=== PATIENT | male | born 1940 | race Hispanic/Latino ===

== ENCOUNTER 2020-11-11 10:33 | Inpatient (IN) | payer MEDICARE ==
[~2020-11-11 10:33] MED LIST: Iopamidol-370 76% 500 ML 1 ML ONE
[2020-11-11 10:47] LABS: #Basophils 0.1 thou/uL (0.0-0.2); #Eosinphils 0.4 thou/uL (0.0-0.7); #Lymphocytes 4.1 thou/uL (1.20-3.40); #Monocytes 1.1 thou/uL (0.11-0.59); #Neutrophils 4.9 thou/uL (1.40-6.50); %Basophils 0.6 % (0.0-1.0); %Eosinophils 3.4 % (0.0-10.0); %Lymphocytes 39.3 % (21.0-51.0); %Monocytes 10.2 % (0.0-10.0); %Neutrophils 46.5 % (42.0-75.0); Hemoglobin 16.2 g/dL (14.0-18.0); Mean Corpuscular HGB CONC 32.2 g/dL (32.0-36.0); Mean Corpuscular Hemoglobin 32.3 pg (27.0-31.0); Platelet Count 142 thou/uL (130-400); RBC Distribution Width 12.3 % (11.5-14.5); Red Blood Cell (RBC) Count 5.03 mill/uL (4.70-6.10); White Blood Cell (WBC) Count 10.4 thou/uL (4.8-10.8)
[2020-11-11 10:54] LABS: INR-International Normal Ratio 1.3; Prothrombin Time 15.8 sec (12.0-14.7)
[2020-11-11 10:56] LABS: PTT 33.6 sec (22.9-36.1)
[2020-11-11 11:02] LABS: ALT (SGPT) Less than 7 U/L (8-55); AST (SGOT) 12 U/L (5-34); Albumin 4.3 g/dL (3.4-4.8); Alkaline Phosphatase 172 U/L (40-110); Anion Gap 32 mmol/L (10-20); BUN (Urea Nitrogen) 15 mg/dL (8.4-25.7); Bilirubin, Total 1.2 mg/dL (0.2-1.2); CK (CPK) 52 U/L (30-200); Calc. Creatinine Clearance 0 mL/min (70-130); Calcium 10.4 mg/dL (7.8-10.44); Carbon Dioxide 11 mmol/L (23-31); Chloride 106 mmol/L (98-107); Globulin 3.7 g/dL (2.4-3.5); Glucose 156 mg/dL (83-110); Potassium 3.3 mmol/L (3.5-5.1); Sodium 146 mmol/L (136-145)
[2020-11-11 11:49] LABS: Bilirubin Negative (Negative); Blood, Urine Negative (Negative); Clarity Clear (Clear); Glucose, Urine (Dipstick) Normal (Negative); Ketone, Urine Negative (Negative); Leukocyte Negative Leu/uL (Negative); Nitrite Negative (Negative); Protein, Urine (Dipstick) Negative (Neg-Trace); Specific Gravity, Urine 1.018 (1.002-1.036); Urobilinogen Normal mg/dL (Less than 2)
[2020-11-11] MEDS ORDERED: Lorazepam 2 MG/ML VIAL ONE ×2 (11:53→16:14)
[2020-11-11] MEDS ORDERED: levETIRAcetam in NS 100 ML ONE (12:49)
[2020-11-11] MEDS ORDERED: levETIRAcetam in NS 1,000 MG in Premix Bag 1 BAG IVPB SCH (13:00)
[2020-11-11] MEDS ORDERED: Acetaminophen 650 MG Suppository PR PRN (13:24)
[2020-11-11] MEDS ORDERED: Ondansetron PF 4 MG/2 ML Vial IVP PRN (13:24)
[2020-11-11 13:41] LABS: SARS-CoV-2 NAA Rapid Test Not Detected (NotDetected)
[2020-11-11] MEDS ORDERED: cefTRIAXone\\ROCEPHIN 1 GM in Sodium Chloride 0.9% 100 ML IVPB SCH (14:00)
[2020-11-11] MEDS ORDERED: Azithromycin 500 MG in Sodium Chloride 0.9% 250 ML 250 ML IVPB SCH (15:00)
[2020-11-11] MEDS ORDERED: Lorazepam 2 MG/ML VIAL SLOW IVP SCH (16:15)
[2020-11-11] MEDS ORDERED: Carbidopa/Levodopa 25-100 mg Tablet PER TUBE SCH (16:45)
[2020-11-11] MEDS ORDERED: cefTRIAXone\\ROCEPHIN 1 GM VIAL ONE (16:48)
[2020-11-11] MEDS ORDERED: Azithromycin 500 MG VIAL ONE (17:16)
[2020-11-11] MEDS ORDERED: Haloperidol Lactate 5 MG/ML VIAL IM SCH (18:15)
[2020-11-11] MEDS ORDERED: Haloperidol Lactate 5 MG/ML VIAL ONE (18:15)
[2020-11-11] MEDS: levETIRAcetam in NS 500 MG in Premix Bag 1 BAG IVPB SCH (22:44)
[2020-11-11] MEDS: Carbidopa/Levodopa 25-100 mg Tablet PER TUBE SCH (22:44)
[2020-11-12 00:36] VITALS: BMI 24.4
[2020-11-12 08:23] LABS: #Eosinphils 0.1 thou/uL (0.0-0.7); #Neutrophils 5.6 thou/uL (1.40-6.50); %Basophils 0.6 % (0.0-1.0); %Eosinophils 1.1 % (0.0-10.0); %Lymphocytes 13.4 % (21.0-51.0); %Monocytes 12.8 % (0.0-10.0); %Neutrophils 72.1 % (42.0-75.0); Hemoglobin 14.7 g/dL (14.0-18.0); Mean Corpuscular HGB CONC 34.8 g/dL (32.0-36.0); Mean Corpuscular Hemoglobin 33.2 pg (27.0-31.0); Mean Corpuscular Volume 95.5 fL (78.0-98.0); Mean Platelet Volume 10.1 fL (7.4-10.4); Platelet Count 117 thou/uL (130-400); RBC Distribution Width 12.1 % (11.5-14.5); Red Blood Cell (RBC) Count 4.42 mill/uL (4.70-6.10); White Blood Cell (WBC) Count 7.8 thou/uL (4.8-10.8)
[2020-11-12 08:36] LABS: Anion Gap 10 mmol/L (10-20); BUN (Urea Nitrogen) 9 mg/dL (8.4-25.7); Calc. Creatinine Clearance 88 mL/min (70-130); Calcium 8.9 mg/dL (7.8-10.44); Carbon Dioxide 23 mmol/L (23-31); Chloride 111 mmol/L (98-107); Glucose 101 mg/dL (83-110); Potassium 3.5 mmol/L (3.5-5.1); Sodium 140 mmol/L (136-145)
[2020-11-12] MEDS: Carbidopa/Levodopa 25-100 mg Tablet PER TUBE SCH ×3 (09:13→21:53)
[2020-11-12] MEDS: levETIRAcetam in NS 500 MG in Premix Bag 1 BAG IVPB SCH ×2 (09:14→21:52)
[2020-11-12 12:27] LABS: Magnesium 1.9 mg/dL (1.6-2.6); Phosphorus 2.4 mg/dL (2.3-4.7)
[2020-11-12] MEDS: NS 0.9% w/ 20 MEQ KCL 1,000 ML/1,000 ML BAG IV SCH (15:44)
[2020-11-12] MEDS: Atorvastatin Calcium 10 MG TAB PO SCH (21:52)
[2020-11-12] MEDS: Senokot S 8.6-50 MG TAB PO SCH (21:52)
[2020-11-13] MEDS: NS 0.9% w/ 20 MEQ KCL 1,000 ML/1,000 ML BAG IV SCH ×2 (04:13→15:14)
[2020-11-13 06:17] LABS: Anion Gap 7 mmol/L (10-20); BUN (Urea Nitrogen) 10 mg/dL (8.4-25.7); Calc. Creatinine Clearance 113 mL/min (70-130); Calcium 6.5 mg/dL (7.8-10.44); Carbon Dioxide 18 mmol/L (23-31); Chloride 123 mmol/L (98-107); Glucose 94 mg/dL (83-110); Potassium 7.3 mmol/L (3.5-5.1); Sodium 141 mmol/L (136-145)
[2020-11-13] MEDS: Levothyroxine Sodium 75 MCG TAB PO SCH (06:27)
[2020-11-13] MEDS ORDERED: Cyanocobalamin 1000 MCG/ML VIAL IM SCH (08:15)
[2020-11-13] MEDS ORDERED: Losartan 25 MG TAB PO SCH (09:00)
[2020-11-13] MEDS: Carbidopa/Levodopa 25-100 mg Tablet PER TUBE SCH ×3 (09:47→21:20)
[2020-11-13] MEDS: Amlodipine 5 MG TAB PO SCH (09:47)
[2020-11-13] MEDS: levETIRAcetam 500 MG TAB PO SCH ×2 (09:47→21:20)
[2020-11-13] MEDS: Senokot S 8.6-50 MG TAB PO SCH ×2 (09:47→21:20)
[2020-11-13] MEDS: Multivit, Therapeutic 1 TAB PO SCH (09:47)
[2020-11-13] MEDS: Citalopram 10 MG TAB PO SCH (09:48)
[2020-11-13 10:21] LABS: Potassium 3.6 mmol/L (3.5-5.1)
[2020-11-13] MEDS ORDERED: Cyanocobalamin (Vitamin B-12) 1,000 MCG TAB PO SCH (21:00)
[2020-11-13] MEDS: Atorvastatin Calcium 10 MG TAB PO SCH (21:20)
[2020-11-14] MEDS: NS 0.9% w/ 20 MEQ KCL 1,000 ML/1,000 ML BAG IV SCH (00:22)
[2020-11-14] MEDS: Levothyroxine Sodium 75 MCG TAB PO SCH (05:42)
[2020-11-14] MEDS: Senokot S 8.6-50 MG TAB PO SCH (08:56)
[2020-11-14] MEDS: Citalopram 10 MG TAB PO SCH (08:56)
[2020-11-14] MEDS: Amlodipine 5 MG TAB PO SCH (08:56)
[2020-11-14] MEDS: Carbidopa/Levodopa 25-100 mg Tablet PER TUBE SCH (08:56)
[2020-11-14] MEDS: Multivit, Therapeutic 1 TAB PO SCH (08:56)
[2020-11-14] MEDS: levETIRAcetam 500 MG TAB PO SCH (08:56)
[2020-11-14] MEDS ORDERED: Losartan 25 MG TAB PO SCH (10:15)
[2020-11-14] MEDS ORDERED: Aspirin 81 mg Enteric Coated Tablet PO SCH (11:45)
[2020-11-14 12:38] VITALS: TEMP 98.3
[2020-11-14 12:47] VITALS: BP 167/79
[2020-11-15] MEDS ORDERED: Losartan 25 MG TAB PO SCH (09:00)
== END 2020-11-14 14:57 | disposition home health service (06) | DRG 101 ==
LOC: ERS 10:33 → ERHOLD 11:35 → 3SE 21:50
PROVIDERS: ADMIT Internal Medicine; ATTEND Internal Medicine
DX: G40.409 Other generalized epilepsy and epileptic syndromes, not intractable, without status epilepticus (principal); E87.2 Acidosis; E87.0 Hyperosmolality and hypernatremia; Z66 Do not resuscitate; Z20.822 Contact with and (suspected) exposure to COVID-19; G93.89 Other specified disorders of brain; E87.6 Hypokalemia; E53.8 Deficiency of other specified B group vitamins; G20 Parkinson's disease; I65.03 Occlusion and stenosis of bilateral vertebral arteries; I95.9 Hypotension, unspecified; I12.9 Hypertensive chronic kidney disease with stage 1 through stage 4 chronic kidney disease, or unspecified chronic kidney disease; E86.0 Dehydration; N18.9 Chronic kidney disease, unspecified; Z78.1 Physical restraint status; Z79.82 Long term (current) use of aspirin; Z79.890 Hormone replacement therapy; Z79.899 Other long term (current) drug therapy
CPT/HCPCS: 0240U; 36415; 36416; 51702; 70450; 70496; 70498; 71045; 74018; 80048; 80053; 81003; 82550; 82607; 82746; 83605; 83735; 84100; 84484; 85025; 85610; 85730; 93005; 95712; 95819; 95957; 96374; 96376; J0456; J0696; J1630; J1953; J2060; J3420; J3480; J3490; J7050; Q9967

== ENCOUNTER 2022-03-06 13:59 | Outpatient (CLI) | payer MEDICARE | END 2022-03-06 14:00 | disposition home or self-care (01) | LOC: BICULT 13:59 | PROVIDERS: ATTEND Family Medicine | DX: I82.491 Acute embolism and thrombosis of other specified deep vein of right lower extremity (principal) ==

== ENCOUNTER 2023-01-09 11:49 | Inpatient (IN) | payer MEDICARE ==
[~2023-01-09 11:49] MED LIST changes: -Iopamidol-370 76% 500 ML 1 ML ONE; +Iopamidol-370 76% 500 ML MDV (1 ML CHARGE) ONE; +Magnevist 469MG/ML 20 ML VIAL ONE
[2023-01-09 12:29] LABS: #Eosinphils 0.2 thou/uL (0.0-0.7); #Monocytes 1.1 thou/uL (0.11-0.59); #Neutrophils 8.1 thou/uL (1.40-6.50); %Basophils 0.3 % (0.0-1.0); %Eosinophils 2.1 % (0.0-10.0); %Lymphocytes 8.3 % (21.0-51.0); %Monocytes 10.3 % (0.0-10.0); %Neutrophils 78.7 % (42.0-75.0); Hematocrit 44.3 % (42.0-52.0); Hemoglobin 15.6 g/dL (14.0-18.0); Mean Corpuscular HGB CONC 35.2 g/dL (32.0-36.0); Mean Corpuscular Hemoglobin 33.5 pg (27.0-31.0); Mean Corpuscular Volume 95.3 fl (78.0-98.0); Mean Platelet Volume 11.3 fL (7.4-10.4); Platelet Count 142 10x3/uL (130-400); RBC Distribution Width 12.7 % (11.5-14.5); Red Blood Cell (RBC) Count 4.65 mill/uL (4.70-6.10); White Blood Cell (WBC) Count 10.3 10x3/uL (4.8-10.8)
[2023-01-09 12:41] LABS: INR-International Normal Ratio 1.4; Prothrombin Time 17.7 sec (12.0-14.7)
[2023-01-09 12:42] LABS: PTT 35.3 sec (22.9-36.1)
[2023-01-09 12:53] LABS: ALT (SGPT) 27 U/L (8-55); AST (SGOT) 129 U/L (5-34); Albumin 4.1 g/dL (3.4-4.8); Alkaline Phosphatase 339 U/L (40-110); Anion Gap 13 mmol/L (10-20); BUN (Urea Nitrogen) 17 mg/dL (8.4-25.7); Bilirubin, Total 1.7 mg/dL (0.2-1.2); CK (CPK) 28 U/L (30-200); Calc. Creatinine Clearance 0 mL/min (70-130); Calcium 10.2 mg/dL (7.8-10.44); Carbon Dioxide 22 mmol/L (23-31); Chloride 107 mmol/L (98-107); Estimated GFR 91; Globulin 3.2 g/dL (2.4-3.5); Glucose 114 mg/dL (83-110); Potassium 3.9 mmol/L (3.5-5.1); Protein, Total 7.3 g/dL (5.8-8.1); Sodium 138 mmol/L (136-145)
[2023-01-09 12:55] LABS: Troponin I Less than 0.010 ng/mL (< 0.028)
[2023-01-09] MEDS ORDERED: Aspirin Chewable 81 MG TAB ONE (13:00)
[2023-01-09] MEDS ORDERED: cefTRIAXone (ROCEPHIN) 2 GM VIAL ONE (13:34)
[2023-01-09] MEDS ORDERED: Aspirin 300 MG Suppository ONE (13:35)
[2023-01-09] MEDS ORDERED: Azithromycin 500 MG VIAL ONE (13:35)
[2023-01-09] MEDS ORDERED: Sodium Chloride 0.9% 100 ML ONE (13:37)
[2023-01-09] MEDS ORDERED: hydrALAZINE 20 MG/ML VIAL SLOW IVP PRN (14:39)
[2023-01-09] MEDS ORDERED: Senokot S 8.6-50 MG TAB PO PRN (14:41)
[2023-01-09] MEDS ORDERED: Ondansetron PF 4 MG/2 ML Vial IVP PRN (14:41)
[2023-01-09] MEDS ORDERED: Ondansetron ODT 4 MG TAB PO PRN (14:41)
[2023-01-09] MEDS ORDERED: Acetaminophen 650 MG Suppository PR PRN (14:56)
[2023-01-09 17:49] VITALS: BMI 26.1
[2023-01-09] MEDS: D5 1/2 NS w/20 mEq KCL 1,000 ML IV SCH (18:54)
[2023-01-09] MEDS: metroNIDAZOLE 500 MG in Premix 1 BAG IVPB SCH (18:54)
[2023-01-09] MEDS ORDERED: Non-Formulary Item 1 EACH (Famotidine [Famotidine] 40 MG Tablet) PO SCH (21:00)
[2023-01-09] MEDS ORDERED: Famotidine 20 MG TAB PO SCH (21:00)
[2023-01-09] MEDS: Famotidine/PF 20 mg/2ml Vial SLOW IVP SCH (22:00)
[2023-01-09] MEDS: levETIRAcetam 500 MG/5 ML VIAL SLOW IVP SCH (22:00)
[2023-01-09] MEDS: Heparin 5,000 UNITS/ML VIAL SC SCH (22:01)
[2023-01-09] MEDS: levETIRAcetam 500 MG TAB PO SCH (23:07)
[2023-01-09] MEDS: Docusate 100 MG CAP PO SCH (23:07)
[2023-01-09] MEDS: Atorvastatin Calcium 20 MG TAB PO SCH (23:07)
[2023-01-10] MEDS: metroNIDAZOLE 500 MG in Premix 1 BAG IVPB SCH ×4 (00:56→23:04)
[2023-01-10] MEDS: Levothyroxine Sodium 25 MCG TAB PO SCH (04:35)
[2023-01-10 05:12] LABS: #Eosinphils 0.2 thou/uL (0.0-0.7); #Monocytes 0.8 thou/uL (0.11-0.59); #Neutrophils 6.5 thou/uL (1.40-6.50); %Basophils 0.1 % (0.0-1.0); %Eosinophils 2.7 % (0.0-10.0); %Lymphocytes 10.6 % (21.0-51.0); %Monocytes 9.4 % (0.0-10.0); %Neutrophils 76.8 % (42.0-75.0); Hematocrit 38.9 % (42.0-52.0); Hemoglobin 13.5 g/dL (14.0-18.0); Mean Corpuscular HGB CONC 34.7 g/dL (32.0-36.0); Mean Corpuscular Hemoglobin 33.2 pg (27.0-31.0); Mean Corpuscular Volume 95.6 fl (78.0-98.0); Platelet Count 149 10x3/uL (130-400); RBC Distribution Width 12.6 % (11.5-14.5); Red Blood Cell (RBC) Count 4.07 mill/uL (4.70-6.10); White Blood Cell (WBC) Count 8.4 10x3/uL (4.8-10.8)
[2023-01-10 05:37] LABS: Phosphorus 2.3 mg/dL (2.3-4.7)
[2023-01-10 06:14] LABS: ALT (SGPT) 96 U/L (8-55); AST (SGOT) 60 U/L (5-34); Albumin 3.5 g/dL (3.4-4.8); Alkaline Phosphatase 253 U/L (40-110); Anion Gap 12 mmol/L (10-20); BUN (Urea Nitrogen) 12 mg/dL (8.4-25.7); Bilirubin, Total 0.9 mg/dL (0.2-1.2); Calc. Creatinine Clearance 81 mL/min (70-130); Calcium 9.5 mg/dL (7.8-10.44); Carbon Dioxide 22 mmol/L (23-31); Chloride 107 mmol/L (98-107); Estimated GFR 92; Globulin 2.7 g/dL (2.4-3.5); Glucose 133 mg/dL (83-110); Magnesium 1.9 mg/dL (1.6-2.6); Potassium 3.9 mmol/L (3.5-5.1); Protein, Total 6.2 g/dL (5.8-8.1); Sodium 137 mmol/L (136-145)
[2023-01-10] MEDS ORDERED: Aspirin 81 mg Enteric Coated Tablet PO SCH (09:00)
[2023-01-10] MEDS: D5 1/2 NS w/20 mEq KCL 1,000 ML IV SCH (09:28)
[2023-01-10] MEDS: Multivit, Therapeutic 1 TAB PO SCH (09:30)
[2023-01-10] MEDS: Aspirin 81 mg Enteric Coated Tablet PO SCH (09:30)
[2023-01-10] MEDS: Cyanocobalamin (Vitamin B-12) 1,000 MCG TAB PO SCH (09:30)
[2023-01-10] MEDS: Citalopram 10 MG TAB PO SCH (09:30)
[2023-01-10] MEDS: Amlodipine 5 MG TAB PO SCH (09:30)
[2023-01-10] MEDS: Losartan 25 MG TAB PO SCH (09:30)
[2023-01-10] MEDS: levETIRAcetam 500 MG TAB PO SCH ×2 (09:31→22:57)
[2023-01-10] MEDS: Heparin 5,000 UNITS/ML VIAL SC SCH ×2 (09:31→23:12)
[2023-01-10] MEDS: levETIRAcetam 500 MG/5 ML VIAL SLOW IVP SCH ×2 (09:31→22:55)
[2023-01-10] MEDS: Famotidine/PF 20 mg/2ml Vial SLOW IVP SCH ×2 (09:31→22:55)
[2023-01-10] MEDS: Docusate 100 MG CAP PO SCH ×2 (09:42→22:56)
[2023-01-10 11:40] LABS: Bacteria/HPF None Seen HPF (None Seen); Bilirubin Negative (Negative); Blood, Urine Trace (Negative); Clarity Clear (Clear); Glucose, Urine (Dipstick) Normal (Negative); Ketone, Urine Trace mg/dL (Negative); Leukocyte Negative Leu/uL (Negative); Nitrite Negative (Negative); Protein, Urine (Dipstick) 10 mg/dL (Neg-Trace); RBC/HPF None Seen HPF (0-3); Specific Gravity, Urine 1.049 (1.002-1.036); Squamous Epithelial 0-3 HPF (0-3); Urobilinogen Normal mg/dL (Less than 2); WBC/HPF None Seen HPF (0-3); pH, Urine 6.5 (5.0-9.0)
[2023-01-10] MEDS: cefTRIAXone\\ROCEPHIN 2 GM in Sodium Chloride 0.9% 100 ML IVPB SCH (14:13)
[2023-01-10] MEDS: Atorvastatin Calcium 20 MG TAB PO SCH (22:58)
[2023-01-11] MEDS: Carbidopa/Levodopa [Rytary Er] 48.75 MG/195 MG Capsule.Er PO SCH ×5 (01:50→21:54)
[2023-01-11] MEDS: Levothyroxine Sodium 25 MCG TAB PO SCH (06:06)
[2023-01-11] MEDS: Losartan 25 MG TAB PO SCH (09:40)
[2023-01-11] MEDS: Aspirin 81 mg Enteric Coated Tablet PO SCH (09:40)
[2023-01-11] MEDS: Citalopram 10 MG TAB PO SCH (09:40)
[2023-01-11] MEDS: Multivit, Therapeutic 1 TAB PO SCH (09:40)
[2023-01-11] MEDS: levETIRAcetam 500 MG TAB PO SCH ×2 (09:40→21:55)
[2023-01-11] MEDS: Cyanocobalamin (Vitamin B-12) 1,000 MCG TAB PO SCH (09:40)
[2023-01-11] MEDS: Docusate 100 MG CAP PO SCH ×2 (09:40→21:56)
[2023-01-11] MEDS: Amlodipine 5 MG TAB PO SCH (09:40)
[2023-01-11] MEDS: metroNIDAZOLE 500 MG in Premix 1 BAG IVPB SCH ×3 (09:42→23:33)
[2023-01-11] MEDS: Famotidine/PF 20 mg/2ml Vial SLOW IVP SCH ×2 (09:47→21:55)
[2023-01-11] MEDS: Heparin 5,000 UNITS/ML VIAL SC SCH ×2 (09:47→21:55)
[2023-01-11] MEDS: cefTRIAXone\\ROCEPHIN 2 GM in Sodium Chloride 0.9% 100 ML IVPB SCH (15:06)
[2023-01-11] MEDS: Atorvastatin Calcium 20 MG TAB PO SCH (21:55)
[2023-01-12] MEDS: Levothyroxine Sodium 25 MCG TAB PO SCH (06:11)
[2023-01-12] MEDS: metroNIDAZOLE 500 MG in Premix 1 BAG IVPB SCH ×3 (11:46→23:02)
[2023-01-12] MEDS: Citalopram 10 MG TAB PO SCH (11:47)
[2023-01-12] MEDS: Amlodipine 5 MG TAB PO SCH (11:47)
[2023-01-12] MEDS: Losartan 25 MG TAB PO SCH (11:47)
[2023-01-12] MEDS: Cyanocobalamin (Vitamin B-12) 1,000 MCG TAB PO SCH (11:47)
[2023-01-12] MEDS: Docusate 100 MG CAP PO SCH ×3 (11:47→23:02)
[2023-01-12] MEDS: levETIRAcetam 500 MG TAB PO SCH ×2 (11:49→11:51)
[2023-01-12] MEDS: Heparin 5,000 UNITS/ML VIAL SC SCH ×2 (11:49→22:43)
[2023-01-12] MEDS: Famotidine/PF 20 mg/2ml Vial SLOW IVP SCH ×2 (11:49→22:43)
[2023-01-12] MEDS: Aspirin 81 mg Enteric Coated Tablet PO SCH (11:49)
[2023-01-12] MEDS: Carbidopa/Levodopa [Rytary Er] 48.75 MG/195 MG Capsule.Er PO SCH ×3 (11:50→20:23)
[2023-01-12] MEDS: Multivit, Therapeutic 1 TAB PO SCH (11:51)
[2023-01-12] MEDS: cefTRIAXone\\ROCEPHIN 2 GM in Sodium Chloride 0.9% 100 ML IVPB SCH (19:31)
[2023-01-12] MEDS ORDERED: levETIRAcetam 500 mg/5 ml Oral Solution PO SCH (22:00)
[2023-01-12] MEDS ORDERED: Lorazepam 2 MG/ML VIAL SLOW IVP SCH (22:00)
[2023-01-13] MEDS: metroNIDAZOLE 500 MG in Premix 1 BAG IVPB SCH ×4 (00:26→23:52)
[2023-01-13] MEDS: Levothyroxine Sodium 25 MCG TAB PO SCH (05:47)
[2023-01-13] MEDS: levETIRAcetam 500 mg/5 ml Oral Solution PO SCH ×2 (11:31→23:51)
[2023-01-13] MEDS: Aspirin 81 mg Enteric Coated Tablet PO SCH (11:32)
[2023-01-13] MEDS: Cyanocobalamin (Vitamin B-12) 1,000 MCG TAB PO SCH (11:32)
[2023-01-13] MEDS: Citalopram 10 MG TAB PO SCH (11:32)
[2023-01-13] MEDS: Multivit, Therapeutic 1 TAB PO SCH (11:32)
[2023-01-13] MEDS: Amlodipine 5 MG TAB PO SCH (11:33)
[2023-01-13] MEDS: Famotidine/PF 20 mg/2ml Vial SLOW IVP SCH ×2 (11:33→23:51)
[2023-01-13] MEDS: Docusate 100 MG CAP PO SCH (11:33)
[2023-01-13] MEDS: Losartan 25 MG TAB PO SCH (11:34)
[2023-01-13] MEDS: Carbidopa/Levodopa [Rytary Er] 48.75 MG/195 MG Capsule.Er PO SCH ×3 (11:35→23:52)
[2023-01-13] MEDS: Heparin 5,000 UNITS/ML VIAL SC SCH ×2 (11:35→23:50)
[2023-01-13] MEDS: cefTRIAXone\\ROCEPHIN 2 GM in Sodium Chloride 0.9% 100 ML IVPB SCH (15:14)
[2023-01-13] MEDS ORDERED: Lorazepam 2 MG/ML VIAL SLOW IVP SCH (22:30)
[2023-01-13] MEDS: Atorvastatin Calcium 40 MG TAB PO SCH (23:51)
[2023-01-14] MEDS: Docusate 100 MG CAP PO SCH ×3 (00:37→22:46)
[2023-01-14] MEDS: Levothyroxine Sodium 25 MCG TAB PO SCH (06:10)
[2023-01-14] MEDS: metroNIDAZOLE 500 MG in Premix 1 BAG IVPB SCH (10:13)
[2023-01-14] MEDS: Amlodipine 5 MG TAB PO SCH ×2 (10:15→11:30)
[2023-01-14] MEDS: Famotidine/PF 20 mg/2ml Vial SLOW IVP SCH (10:17)
[2023-01-14] MEDS: Cyanocobalamin (Vitamin B-12) 1,000 MCG TAB PO SCH (10:17)
[2023-01-14] MEDS: Carbidopa/Levodopa [Rytary Er] 48.75 MG/195 MG Capsule.Er PO SCH ×3 (10:18→22:43)
[2023-01-14] MEDS: levETIRAcetam 500 mg/5 ml Oral Solution PO SCH ×2 (10:18→22:45)
[2023-01-14] MEDS: Multivit, Therapeutic 1 TAB PO SCH (10:18)
[2023-01-14] MEDS: Heparin 5,000 UNITS/ML VIAL SC SCH (10:18)
[2023-01-14] MEDS: Losartan 25 MG TAB PO SCH (10:18)
[2023-01-14] MEDS ORDERED: Aspirin Chewable 81 MG TAB PO SCH (11:00)
[2023-01-14] MEDS: Citalopram 10 MG TAB PO SCH (11:27)
[2023-01-14] MEDS: Aspirin 81 mg Enteric Coated Tablet PO SCH (12:20)
[2023-01-14] MEDS: Acetaminophen 325 MG TAB PO PRN ×2 (14:24→22:43)
[2023-01-14] MEDS: cefTRIAXone\\ROCEPHIN 2 GM in Sodium Chloride 0.9% 100 ML IVPB SCH (14:24)
[2023-01-14] MEDS ORDERED: Lorazepam 2 MG/ML VIAL SLOW IVP SCH (21:30)
[2023-01-14] MEDS: Atorvastatin Calcium 40 MG TAB PO SCH (22:44)
[2023-01-14] MEDS: Famotidine 20 MG TAB PO SCH (22:45)
[2023-01-15] MEDS: Levothyroxine Sodium 25 MCG TAB PO SCH (06:12)
[2023-01-15] MEDS: Losartan 25 MG TAB PO SCH (09:52)
[2023-01-15] MEDS: Citalopram 10 MG TAB PO SCH (09:52)
[2023-01-15] MEDS: Amlodipine 5 MG TAB PO SCH (09:52)
[2023-01-15] MEDS: Cyanocobalamin (Vitamin B-12) 1,000 MCG TAB PO SCH (09:52)
[2023-01-15] MEDS: Multivit, Therapeutic 1 TAB PO SCH (09:52)
[2023-01-15] MEDS: levETIRAcetam 500 mg/5 ml Oral Solution PO SCH ×2 (09:52→21:39)
[2023-01-15] MEDS: Aspirin Chewable 81 MG TAB PO SCH (09:52)
[2023-01-15] MEDS: Carbidopa/Levodopa [Rytary Er] 48.75 MG/195 MG Capsule.Er PO SCH ×3 (09:53→21:39)
[2023-01-15] MEDS: Famotidine 20 MG TAB PO SCH ×2 (09:53→21:38)
[2023-01-15] MEDS: Docusate 100 MG CAP PO SCH ×2 (11:38→21:59)
[2023-01-15] MEDS ORDERED: Melatonin 3 MG TAB PO SCH (21:15)
[2023-01-15] MEDS ORDERED: ALPRAZolam 0.25 MG TAB PO SCH (21:15)
[2023-01-15] MEDS: Atorvastatin Calcium 40 MG TAB PO SCH (21:38)
[2023-01-16] MEDS: Levothyroxine Sodium 25 MCG TAB PO SCH (05:13)
[2023-01-16] MEDS: Famotidine 20 MG TAB PO SCH (09:25)
[2023-01-16] MEDS: Aspirin Chewable 81 MG TAB PO SCH (09:25)
[2023-01-16] MEDS: Amlodipine 5 MG TAB PO SCH (09:26)
[2023-01-16] MEDS: Docusate 100 MG CAP PO SCH (09:26)
[2023-01-16] MEDS: Multivit, Therapeutic 1 TAB PO SCH (09:27)
[2023-01-16] MEDS: Losartan 25 MG TAB PO SCH (09:27)
[2023-01-16] MEDS: Citalopram 10 MG TAB PO SCH (09:27)
[2023-01-16] MEDS: levETIRAcetam 500 mg/5 ml Oral Solution PO SCH (09:27)
[2023-01-16] MEDS: Cyanocobalamin (Vitamin B-12) 1,000 MCG TAB PO SCH (09:27)
[2023-01-16] MEDS: Carbidopa/Levodopa [Rytary Er] 48.75 MG/195 MG Capsule.Er PO SCH ×2 (09:28→14:38)
[2023-01-16 12:04] VITALS: BP 112/66; TEMP 97.8
== END 2023-01-16 15:38 | DRG 64 ==
LOC: ERS 11:49 → 2SE 16:44 → OBSVTOIN 01-10 07:54
PROVIDERS: ADMIT Internal Medicine; ATTEND Internal Medicine
DX: I63.40 Cerebral infarction due to embolism of unspecified cerebral artery (principal); G93.6 Cerebral edema; J98.11 Atelectasis; G40.909 Epilepsy, unspecified, not intractable, without status epilepticus; G20.A1 Parkinson's disease without dyskinesia, without mention of fluctuations; N18.9 Chronic kidney disease, unspecified; I12.9 Hypertensive chronic kidney disease with stage 1 through stage 4 chronic kidney disease, or unspecified chronic kidney disease; K21.9 Gastro-esophageal reflux disease without esophagitis; F41.9 Anxiety disorder, unspecified; E03.9 Hypothyroidism, unspecified; E78.5 Hyperlipidemia, unspecified; Z66 Do not resuscitate; R79.89 Other specified abnormal findings of blood chemistry; I07.1 Rheumatic tricuspid insufficiency; Z98.890 Other specified postprocedural states; Z79.82 Long term (current) use of aspirin; Z86.73 Personal history of transient ischemic attack (TIA), and cerebral infarction without residual deficits; Z86.718 Personal history of other venous thrombosis and embolism
CPT/HCPCS: 0042T; 36415; 36416; 70450; 70496; 70498; 70553; 71045; 74230; 80053; 80061; 81001; 82550; 83605; 83735; 84100; 84484; 85025; 85610; 85730; 87040; 93005; 93306; 94760; 96365; 96367; 96372; 96375; 96376; A9579; G0378; J0456; J0696; J1644; J1650; J1953; J2060; J3480; J3490; Q9967; S0028